=== PATIENT | male | born 1955 | race Caucasian/White ===

== ENCOUNTER 2017-04-21 10:59 | Emergency (ER) | payer BC ==
[2017-04-21] MEDS ORDERED: OXYCODONE-ACETAMINOPHEN 5-325 MG TABLET PO ONE ×2 (11:26→14:41)
[2017-04-21] MEDS ORDERED: ONDANSETRON 4 MG TAB.RAPDIS SL ONE (11:26)
--- NOTE | 2017-04-21 11:26 | ER Document Report ---
ED GI/ - General Chief Complaint: Abdominal Pain Stated Complaint: ABDOMINAL PAIN Time Seen by Provider: 04/21/17 11:19 Mode of Arrival: Ambulatory Information source: Patient TRAVEL OUTSIDE OF THE [place] IN LAST 30 DAYS: No - HPI Patient complains to provider of: Abdominal pain, Flank pain, Hematuria - Related Data Allergies/Adverse Reactions: No Known Allergies Allergy (Unverified 04/21/17 11:23) Past Medical History - Social History Smoking Status: Never Smoker Chew tobacco use (# tins/day): No Frequency of alcohol use: None Drug Abuse: None Patient has suicidal ideation: No Patient has homicidal ideation: No Pulmonary Medical History: Reports: Hx Asthma Renal/ Medical History: Denies: Hx Peritoneal Dialysis Musculoskeltal Medical History: Reports Hx Arthritis Past Surgical History: Reports: Hx Abdominal Surgery - hernia repair Physical Exam - Vital signs Vitals: Temp Pulse Resp BP Pulse Ox 98.6 F 68 20 185/89 H 99 04/21/17 11:05 04/21/17 11:05 04/21/17 11:05 04/21/17 11:05 04/21/17 11:05 Course - Vital Signs Vital signs: Temp Pulse Resp BP Pulse Ox 98.6 F 68 20 185/89 H 99 04/21/17 11:05 04/21/17 11:05 04/21/17 11:05 04/21/17 11:05 04/21/17 11:05
[2017-04-21 13:00] LABS: APPEARANCE,URINE SLIGHTLY-CLOUDY; BILIRUBIN,URINE NEGATIVE (NEGATIVE); GLUCOSE, URINE NEGATIVE (NEGATIVE); KETONES,URINE NEGATIVE (NEGATIVE); LEUKOCYTE ESTERASE,URINE NEGATIVE (NEGATIVE); NITRITE,URINE NEGATIVE (NEGATIVE); PROTEIN,URINE NEGATIVE (NEGATIVE); URINE SPECIFIC GRAVITY 1.017; UROBILINOGEN,URINE NEGATIVE mg/dL (<2.0)
--- NOTE | 2017-04-21 13:17 | RADIOLOGY REPORT (SQ) ---
EXAM DESCRIPTION: CT LTD RENAL STONE PROTOCOL ON COMPLETED DATE/TIME: 04/21/2017 12:53 pm REASON FOR STUDY: flank pain COMPARISON: None. TECHNIQUE: CT scan of the abdomen and pelvis performed without intravenous or oral contrast. Images reviewed with lung, soft tissue, and bone windows. Reconstructed coronal and sagittal MPR images revi ewed. All images stored on PACS. All CT scanners at this facility use dose modulation, iterative reconstruction, and/or weight based d osing when appropriate to reduce radiation dose to as low as reasonably achievable (ALARA). [facility]: Dose Right [facility]: CareDose [facility]: Dose Right [facility]: Teradose 4D [facility]: [employer] RADIATION DOSE: 18.02mGy. LIMITATIONS: Pelvic images are limited somewhat due to artifact related to a right hip prosthesis. FINDINGS: LOWER CHEST: No significant findings. No nodules or infiltrates. NON-CONTRASTED LIVER, SPLEEN, ADRENALS: Evaluation limited by lack of IV contrast. No identified sign ificant masses. PANCREAS: No masses. No peripancreatic inflammatory changes. GALLBLADDER: Small gallstones are identified. No inflammatory changes to suggest cholecystitis. RIGHT KIDNEY AND URETER: No suspicious masses. Assessment limited by lack of IV contrast. A couple small nonobstructing renal calculi are identified. No hydronephrosis or hydroureter. LEFT KIDNEY AND URETER: No suspicious masses. Assessment limited by lack of IV contrast. Small nono bstructing left renal calculus is identified. An obstructing 3.1 mm in diameter calculus is identifi ed in the proximal left ureter best seen on image number 36. There is some mild fullness of the lef t ureter and left pelvocaliceal system proximal to this level. AORTA AND RETROPERITONEUM: No aneurysm. No retroperitoneal masses or adenopathy. BOWEL AND PERITONEAL CAVITY: No obvious masses or inflammatory changes. No free fluid. Multiple dive rticula are identified in the sigmoid colon and distal descending colon without CT evidence for diver ticulitis APPENDIX: Normal. PELVIS, BLADDER, AND ABDOMINAL WALL:No abnormal masses. No free fluid. Bladder normal. BONES: No significant findings. OTHER: No other significant finding. IMPRESSION: Small bilateral nonobstructing renal calculi. An obstructing 3.1 mm in diameter calculu s is identified in the proximal left ureter as noted above. Other findings as noted above TECHNICAL DOCUMENTATION: JOB ID: [id number] Quality ID # [id number]: Final reports with documentation of one or more dose reduction techniques (e.g., Au tomated exposure control, adjustment of the mA and/or kV according to patient size, use of iterative reconstruction technique) 2010 [employer]- All Rights Reserved
--- NOTE | 2017-04-21 13:35 | ER Document Report ---
ED GI/ - General Mode of Arrival: Ambulatory Information source: Patient TRAVEL OUTSIDE OF THE [place] IN LAST 30 DAYS: No - HPI Patient complains to provider of: Abdominal pain Associated symptoms: Other - See above <BERNADINE CHOI - Last Filed: 04/21/17 13:35> <ALBA CLARK - Last Filed: 04/21/17 14:35> - General Chief Complaint: Abdominal Pain Stated Complaint: ABDOMINAL PAIN Time Seen by Provider: 04/21/17 11:19 Notes: Patient is a 61 year old male, with a past history including asthma, reflux, and HTN, who presents to the emergency department complaining of abdominal pain onset at 0815 this morning. Patient reports the pain is in his LLQ and radiates into his left lower back. Patient reports he has had some similar pain in the past but the pain subsided in a couple of days, patient believes he passed a small stone a week and a half ago. Patient is currently visiting the area from [place], [place]. Patient reports his HTN is not currently medicated but he has been experimenting with meds with his doctor at home. Patient does take a baby Asa daily. (BERNADINE CHOI) - Related Data Allergies/Adverse Reactions: No Known Allergies Allergy (Unverified 04/21/17 11:23) Past Medical History - General Information source: Patient - Social History Smoking Status: Never Smoker Chew tobacco use (# tins/day): No Frequency of alcohol use: None Drug Abuse: None Family History: Reviewed & Not Pertinent Patient has suicidal ideation: No Patient has homicidal ideation: No - Past Medical History Cardiac Medical History: Reports: Hx Hypertension Pulmonary Medical History: Reports: Hx Asthma GI Medical History: Reports: Other - Hx acid reflux Musculoskeltal Medical History: Reports Hx Arthritis Past Surgical History: Reports: Hx Abdominal Surgery - hernia repair, Hx Orthopedic Surgery - hip and right footr, Hx Umbilical Hernia <BERNADINE CHOI - Last Filed: 04/21/17 13:35> Review of Systems - Review of Systems Constitutional: No symptoms reported EENT: No symptoms reported Cardiovascular: No symptoms reported Respiratory: No symptoms reported Gastrointestinal: See HPI, Abdominal pain Genitourinary: See HPI, Flank pain Male Genitourinary: No symptoms reported Musculoskeletal: No symptoms reported Skin: No symptoms reported Hematologic/Lymphatic: No symptoms reported Neurological/Psychological: No symptoms reported -: Yes All other systems reviewed and negative <BERNADINE CHOI - Last Filed: 04/21/17 13:35> Physical Exam - Vital signs Interpretation: Normal - General General appearance: Appears well, Alert - HEENT Head: Normocephalic, Atraumatic - Respiratory Respiratory status: No respiratory distress Chest status: Nontender Breath sounds: Normal Chest palpation: Normal - Cardiovascular Rhythm: Regular Heart sounds: Normal auscultation Murmur: No - Abdominal Inspection: Obese Distension: No distension Bowel sounds: Normal Tenderness: Tender - left lower quadrant tender to palpation Organomegaly: No organomegaly - Back Back: CVA tenderness - left - Extremities General upper extremity: Normal inspection General lower extremity: Normal inspection - Neurological Neuro grossly intact: Yes Cognition: Normal Orientation: AAOx4 Kathy Coma Scale Eye Opening: Spontaneous Kathy Coma Scale Verbal: Oriented Kathy Coma Scale Motor: Obeys Commands [place] Coma Scale Total: 15 Speech: Normal - Psychological Associated symptoms: Normal affect, Normal mood - Skin Skin Temperature: Warm Skin Moisture: Dry Skin Color: Normal <BERNADINE CHOI - Last Filed: 04/21/17 13:35> Course - Laboratory Result Diagrams: 04/21/17 13:52 04/21/17 12:05 - Diagnostic Test Radiology reviewed: Image reviewed, Reports reviewed - Skin shows bilateral nephrolithiasis with a 3.1 mm proximal left ureteral stone with moderate obstruction. There are also gallstones noted. <ALBA CLARK - Last Filed: 04/21/17 14:35> - Vital Signs Vital signs: Temp Pulse Resp BP Pulse Ox 98.6 F 68 20 185/89 H 99 04/21/17 11:06 04/21/17 11:06 04/21/17 11:06 04/21/17 11:06 04/21/17 11:06 - Laboratory Laboratory results interpreted by al: 04/21/17 04/21/17 12:05 12:05 BUN 23 H Glucose 140 H Urine Blood LARGE H Discharge <BERNADINE CHOI - Last Filed: 04/21/17 13:35> <ALBA CLARK - Last Filed: 04/21/17 14:35> - Discharge Clinical Impression: Ureteral stone with hydronephrosis Condition: Stable Disposition: HOME, SELF-CARE Additional Instructions: Kidney Stone: You are passing or have passed a kidney stone. These stones are usually due to increased calcium or uric acid concentrations in your urine. Stones within the kidney itself are not painful. The pain occurs as the stone leaves the kidney to pass down the long tube, called the ureter, leading to the bladder. If the stone is small, it will usually pass by itself. Most patients can pass the stone at home. You will usually receive medications for pain, nausea or vomiting, and sometimes a medication to assist in passing the kidney stone. However, if the pain is very severe or if vomiting prevents you from taking oral pain medications, you may need to return for further treatment. Drink three or four quarts of fluids per day. You will be given pain medication (if needed) and urine strainers. Strain all your urine to see if the stone passes. If your doctor has asked you to bring the stone in for analysis, return with the stone once it has passed. Return if pain or vomiting become severe, if you develop a high fever, if you are unable to pass your urine, or if other unusual symptoms occur. Prescriptions: Ondansetron HCl [Zofran 8 mg Tablet] 8 mg PO Q4 PRN #15 tablet PRN Reason: Oxycodone HCl/Acetaminophen [Percocet 5-325 mg Tablet] 1 - 2 tab PO ASDIR PRN # 20 tablet PRN Reason: Tamsulosin HCl [Flomax 0.4 mg Cap.sr] 0.4 mg PO DAILY #7 cap.sr.24h Scribe Attestation: 04/21/17 14:35 I personally performed the services described in the documentation, reviewed and edited the documentation which was dictated to the scribe in my presence, and it accurately records my words and actions. (ALBA CLARK) Scribe Documentation - Scribe Written by Gemini:: gemini Dasilva, 04/21/17, 1342 acting as scribe for :: Marina <BERNADINE CHOI - Last Filed: 04/21/17 13:35>
[2017-04-21 13:55] LABS: ALANINE AMINOTRANSFERASE 33 U/L (21-72); ALBUMIN 4.2 g/dL (3.5-5.0); ALKALINE PHOSPHATASE 82 U/L (38-126); ANION GAP 13 (5-19); ASPARTATE AMINO TRANSFERASE 23 U/L (17-59); BILIRUBIN,DIRECT 0.4 mg/dL (0.0-0.4); BILIRUBIN,TOTAL 0.6 mg/dL (0.2-1.3); BLOOD UREA NITROGEN 23 mg/dL (7-20); CALCIUM 9.8 mg/dL (8.4-10.2); CARBON DIOXIDE 25 mmol/L (22-30); CHLORIDE 106 mmol/L (98-107); CREATININE RESULT 0.94 mg/dL (0.52-1.25); GLUCOSE 140 mg/dL (75-110); POTASSIUM 4.3 mmol/L (3.6-5.0); SODIUM 144.2 mmol/L (137-145); TOTAL PROTEIN 7.2 g/dL (6.3-8.2)
[2017-04-21] MEDS ORDERED: TAMSULOSIN HCL 0.4 MG CAP.SR.24H PO ONE (14:17)
[2017-04-21 14:18] LABS: ABSOLUTE LYMPHOCYTES (AUTO) 0.8 10^3/uL (0.5-4.7); ABSOLUTE MONOCYTES (AUTO) 0.7 10^3/uL (0.1-1.4); ABSOLUTE NEUT (AUTO) 7.9 10^3/uL (1.7-8.2); BASOPHILS % (AUTO) 0.4 % (0-2); EOSINOPHILS % (AUTO) 0.4 % (0-6); HEMATOCRIT 41.6 % (37.9-51.0); HEMOGLOBIN 14.2 g/dL (13.5-17.0); LYMPHOCYTES % (AUTO) 8.7 % (13-45); MEAN CORPUSCULAR HGB CONC 34.1 g/dL (32.0-36.0); MEAN CORPUSCULAR VOLUME 94 fl (80-97); MONOCYTES % (AUTO) 7.3 % (3-13); RED BLOOD COUNT 4.42 10^6/uL (4.35-5.55); SEGMENTED NEUTROPHILS % (AUTO) 83.2 % (42-78); WHITE BLOOD COUNT 9.5 10^3/uL (4.0-10.5)
[2017-04-21 14:52] VITALS: BP 163/99
--- NOTE | 2017-04-21 17:37 | ER Document Report ---
ED Medical Screen (RME) - General Chief Complaint: Abdominal Pain Stated Complaint: ABDOMINAL PAIN Time Seen by Provider: 04/21/17 11:19 Mode of Arrival: Ambulatory Information source: Patient TRAVEL OUTSIDE OF THE [place] IN LAST 30 DAYS: No - HPI Patient complains to provider of: LLQ/left flank pain Onset: Yesterday Onset/Duration: Sudden Quality of pain: Fullness, Pressure, Sharp, Stabbing Severity: Moderate Pain Level: 3 Associated Symptoms: Nausea, Other - hematuria Exacerbated by: Denies Relieved by: Denies Similar symptoms previously: Yes Recently seen / treated by doctor: No - Related Data Allergies/Adverse Reactions: No Known Allergies Allergy (Unverified 04/21/17 11:23) Past Medical History - Social History Chew tobacco use (# tins/day): No Frequency of alcohol use: None Drug Abuse: None - Past Medical History Cardiac Medical History: Reports: Hx Hypertension Pulmonary Medical History: Reports: Hx Asthma Renal/ Medical History: Denies: Hx Peritoneal Dialysis GI Medical History: Reports: Other - Hx acid reflux Musculoskeltal Medical History: Reports Hx Arthritis Past Surgical History: Reports: Hx Abdominal Surgery - hernia repair, Hx Orthopedic Surgery - hip and right footr, Hx Umbilical Hernia Physical Exam - Vital signs Vitals: Temp Pulse Resp BP Pulse Ox 98.6 F 68 20 185/89 H 99 04/21/17 11:05 04/21/17 11:05 04/21/17 11:05 04/21/17 11:05 04/21/17 11:05 Course - Vital Signs Vital signs: Temp Pulse Resp BP Pulse Ox 97.4 F 61 20 163/99 H 99 04/21/17 14:37 04/21/17 14:37 04/21/17 11:06 04/21/17 14:37 04/21/17 14:37 - Laboratory Result Diagrams: 04/21/17 13:52 04/21/17 12:05 Laboratory results interpreted by me: 04/21/17 04/21/17 04/21/17 12:05 12:05 13:52 Seg Neutrophils % 83.2 H Lymphocytes % 8.7 L BUN 23 H Glucose 140 H Urine Blood LARGE H Doctor's Discharge - Discharge Clinical Impression: Ureteral stone with hydronephrosis Condition: Stable Disposition: HOME, SELF-CARE Additional Instructions: Kidney Stone: You are passing or have passed a kidney stone. These stones are usually due to increased calcium or uric acid concentrations in your urine. Stones within the kidney itself are not painful. The pain occurs as the stone leaves the kidney to pass down the long tube, called the ureter, leading to the bladder. If the stone is small, it will usually pass by itself. Most patients can pass the stone at home. You will usually receive medications for pain, nausea or vomiting, and sometimes a medication to assist in passing the kidney stone. However, if the pain is very severe or if vomiting prevents you from taking oral pain medications, you may need to return for further treatment. Drink three or four quarts of fluids per day. You will be given pain medication (if needed) and urine strainers. Strain all your urine to see if the stone passes. If your doctor has asked you to bring the stone in for analysis, return with the stone once it has passed. Return if pain or vomiting become severe, if you develop a high fever, if you are unable to pass your urine, or if other unusual symptoms occur. Prescriptions: Ondansetron HCl [Zofran 8 mg Tablet] 8 mg PO Q4 PRN #15 tablet PRN Reason: Oxycodone HCl/Acetaminophen [Percocet 5-325 mg Tablet] 1 - 2 tab PO ASDIR PRN # 20 tablet PRN Reason: Tamsulosin HCl [Flomax 0.4 mg Cap.sr] 0.4 mg PO DAILY #7 cap.sr.24h
== END 2017-04-21 14:53 | disposition home or self-care (01) ==
LOC: ER 10:59
DX: N13.2 Hydronephrosis with renal and ureteral calculous obstruction (principal); R10.9 Unspecified abdominal pain
CPT/HCPCS: 99284; 36415; 87086; 83690; 85025; 80053; 81001; 76380; S0119